=== PATIENT | male | born 1960 | race Caucasian/White ===

== ENCOUNTER 2016-12-19 06:33 | Day surgery (SDC) | payer OTHER ==
[2016-12-10 10:31] VITALS: BMI 20.9
[~2016-12-19 06:33] MED LIST: DEXAMETHASONE SOD PHOSPHATE 10 MG/ML 1 ML VIAL IV ONE; HEPARIN SODIUM,PORCINE 5,000 UNIT/ML 1 ML VIAL SQ ONE; HYDROmorphone 1 MG/ML 1 ML SYRINGE IVP PRN; LACTATED RINGERS 1,000 ML IV SCH; ONDANSETRON 4 MG/2 ML VIAL IVP ONE; SCOPOLAMINE 1.5MG/72HR PATCH TRANSDERM ONE; ceFAZolin 2 GM in SODIUM CHLORIDE 0.9% 100 ML IVPB ONE
[2016-12-19] MEDS ORDERED: LIDOCAINE 1% 20 ML VIAL (10MG/ML) FOR IV START INTRADERMA ONE (06:59)
[2016-12-19] MEDS: MIDAZOLAM 2 MG/2 ML VIAL IV PRN ×2 (07:15→10:40)
[2016-12-19] MEDS ORDERED: HYDROmorphone (PF) 1 MG/ML ONE (07:35)
[2016-12-19] MEDS ORDERED: NEOSTIGMINE 1 MG/ML 10 ML VIAL ONE (07:35)
[2016-12-19] MEDS ORDERED: ROCURONIUM BROMIDE 10 MG/ML 10 ML VIAL IV ONE (07:35)
[2016-12-19] MEDS ORDERED: SUCCINYLCHOLINE CHLORIDE 100 MG/5 ML SYR IV ONE (07:35)
[2016-12-19] MEDS ORDERED: fentaNYL (PF) 50 MCG/ML 2 ML AMP ONE (07:35)
[2016-12-19] MEDS ORDERED: LIDOCAINE 1% INJ 10MG/ML (20 ML MDV) ONE (07:35)
[2016-12-19] MEDS ORDERED: PROPOFOL 10 MG/ML 20 ML VIAL IV ONE (07:35)
[2016-12-19] MEDS ORDERED: GLYCOPYRROLATE 0.2 MG/ML 2 ML VIAL ONE (07:35)
[2016-12-19] MEDS ORDERED: MIDAZOLAM 2 MG/2 ML VIAL ONE (07:35)
[2016-12-19] MEDS ORDERED: LIDOCAINE 2%-EPI 1:100,000 20 ML VIAL SQ ONE (08:06)
[2016-12-19 09:58] VITALS: TEMP 96.8
[2016-12-19] MEDS ORDERED: KETOROLAC 30 MG/ML 1 ML VIAL IVP ONE (10:22)
--- NOTE | 2016-12-19 10:30 | P.OP ---
Date of Procedure: 12/19/16 Preoperative Diagnosis: Right inguinal hernia Right colon cancer S/P right hemicolectomy PTSD Chronic nicotine dependence Postoperative Diagnosis: Same Procedure(s) Performed: Laparoscopic lysis of adhesions Robotic assist right inguinal hernia repair with mesh Implants: Covidien Progrip 10x15 cm Anesthesia: CAROL ANNA, local Surgeon: Isabella Dent Estimated Blood Loss (ml): 5 Pathology: none sent Condition: stable Disposition: PACU Indications for Procedure: 56 years old male presents with right inguinal hernia. He is a chronic active smoker. History of severe posttraumatic stress disorder. He underwent laparoscopic right hemicolectomy for colon cancer at outside facility. Informed consent obtained and he elected to undergo robotic-assisted laparoscopic right inguinal hernia repair with mesh possible bilateral possible open. Operative Findings: Omental adhesions between midline incision and small bowel. The right lower quadrant had colon and small bowel adhered to the peritoneum. Direct type hernia on the right side. No left inguinal hernia Description of Procedure: The patient was brought to the operating room and placed in supine position. General anesthesia with endotracheal intubation was performed as per anesthesia team. Both arms were tucked against the abdominal wall and a shunt was positioned in lithotomy using yellowfin stirrups. A ca catheter was inserted under sterile aseptic precautions. Chlorhexidine was used to prep the skin followed by application of sterile drapes and Ioban dressing. A timeout was performed to verify correct patient, correct procedure and correct side. Patient was confirmed to receive perioperative IV antibiotics, subcutaneous heparin 5000 units and bilateral SCDs were placed. A 2 mm skin incision was made in the left subcostal area and Veress needle was inserted to establish pneumoperitoneum to a pressure of 15 mmHg. a were dense adhesions between omentum and small bowel along prior midline incision. Additional 5 mm trocar was placed in the left lower quadrant. Laparoscopic lysis of adhesions was done using Ligasure device. The colon and small bowel were adhered to the right lower quadrant, most likely prior anastomosis site. This was carefully taken down using combination of sharp and blunt dissection.. A 1.5 cm supraumbilical incision was made which was deepened through the subcutaneous tissue . Two additional 8 mm skin incisions were made on either side of the midline approximately 8 cm away. A 5 mm 30 laparoscope was used to enter the peritoneum using direct Optiview technique. A 12 mm robotic trocar was inserted in the supraumbilical area and 8 mm robotic trocars were inserted on either side of the midline. The patient was placed in Trendelenburg position and the robot was brought in between the legs. The robotic arms including the camera arm were docked on the trocars. The robotic prograsp and monopolar scissors were introduced via arm 1 and 2 respectively. Upon inspection of the peritoneal cavity, right direct inguinal hernia hernia identified. The rasmussen anatomical landmarks including the pubic symphysis, median and medial umbilical ligaments and bilateral epigastric vessels were identified. No left sided hernia. Using monopolar scissors a peritoneal flap was created extending medially from the median umbilical ligament and laterally to the direct hernia space. Using gentle traction and countertraction the flap was developed posteriorly. Loose fibrofatty tissue was bluntly dissected. Medially the dissection was carried along the Neel's ligament till pubic tubercle was identified. Care was taken to stay away from the urinary bladder. Dissection was carried out to leave the epigastric vessels against the anterior abdominal wall and laterally beyond the hernia defect. The direct hernia sac was completely reduced. The iliofemoral vessels were identified. The peritoneal reflection overlying the spermatic cord was also dissected off. Care was taken not to injure any gonadal vessels or spermatic cord. Enough inferior dissection was carried out 2 cm below the hernia defect. No indirect hernia noted. Covidien progrip mesh 10x15 cm was rolled and introduced through the 12 mm camera port. The right mesh was placed in the preperitoneal cavity with green portion overlying the pubic tubercle . The mesh was rolled upwards so that the mesh covered the direct , indirect inguinal hernia and the femoral hernia space without any kinks or folds. The peritoneal flap was then sutured to the cut edge of the peritoneum using continuous 2-0 V lock sutures. The hernia sac w2as completely reduced and the mesh lay flat without any kinks or folds. The robotic arms were then undocked and 30 degree laparoscope was inserted. All the needles were removed from the abdominal cavity. The 12mm camera trocar site was closed with 2 transfascial sutures of 0 Vicryl. The sponge, instrument and needle count were correct x2. The skin was closed with interrupted sutures of 4-0 Monocryl. Dermabond skin glue was applied followed by Telfa and Tegaderm dressing. Ca catheter was removed and scrotum was palpated to confirm the position of the testicles. The patient tolerated the procedure well and was taken to post anesthesia care unit in stable condition .
[2016-12-19 10:56] VITALS: RESP 16
[2016-12-19 11:23] VITALS: BP 130/79
[2016-12-19 11:45] VITALS: PULSE 60
== END 2016-12-19 12:42 | disposition home or self-care (01) ==
LOC: OR 06:33
PROVIDERS: ATTEND Surgery
DX: K40.90 Unilateral inguinal hernia, without obstruction or gangrene, not specified as recurrent (principal); K66.0 Peritoneal adhesions (postprocedural) (postinfection); Z90.49 Acquired absence of other specified parts of digestive tract; Z85.038 Personal history of other malignant neoplasm of large intestine
CPT/HCPCS: 49650; S2900

== ENCOUNTER → 2017-08-24 | Outpatient (CLI) | payer OTHER ==
--- NOTE | 2017-08-24 13:12 | US ---
EXAMINATION TYPE: US groin RT DATE OF EXAM: 08/24/2017 COMPARISON: 04/01/17 Ultrasound CLINICAL HISTORY: R22.41 Mass of Right hip. Palpable lump right groin Multiple lymph nodes noted. Largest one = 2.9 x 1.5 x 1.0 cm. This was seen previously and measured 2 .1 x 0.6 x 1.0 cm at that time. Many smaller, hypoechoic lymph nodes seen as well. Area of palpable l ump = hypoechoic, 0.7 x 0.5 x 0.3 cm Previously this measured 0.9 x 1.0 x 1.1 cm IMPRESSION: As above. Largest measure lymph node appears to have lost normal fatty hilum. At this po int I would advise further imaging with contrast enhanced MRI and/or CT to evaluate this persistent a neli of clinical concern.
== END | disposition home or self-care (01) ==
LOC: RADUSWWP 12:16
PROVIDERS: ATTEND Family Medicine
DX: R22.9 Localized swelling, mass and lump, unspecified (principal)

== ENCOUNTER → 2017-10-06 | Outpatient (CLI) | payer OTHER ==
--- NOTE | 2017-10-06 11:38 | FL ---
EXAMINATION TYPE: FL barium swallow DATE OF EXAM: 10/06/2017 CLINICAL HISTORY: Hoarseness and dysphasia per order, recent ENT score of September 29 with possible lump TECHNIQUE: A double contrast esophagram is performed utilizing air and barium. A total of 71 second s of fluoroscopic time was utilized during procedure. 57 spot images are saved during procedure COMPARISON: None FINDINGS: The esophagus shows satisfactory motility and emptying into the stomach. Patient did have e pisode of aspiration which cleared with coughing injury did not reproduce. No evidence of hiatal her eulalio or stricture noted. No obvious intraluminal mass identified with fairly symmetric appears to the piriform sinuses. No significant gastroesophageal reflux was seen during real time performance of thi s study. IMPRESSION: No significant abnormality or mass is seen to account for patient's symptoms. Consider contrast-enhanced neck CT which is more sensitive if clinical suspicion persists.
== END | disposition home or self-care (01) ==
LOC: RADFLMAIN 10:44
PROVIDERS: ATTEND Otolaryngology
DX: R49.0 Dysphonia (principal); R13.10 Dysphagia, unspecified
CPT/HCPCS: 74220

== ENCOUNTER → 2017-10-29 | Outpatient (CLI) | payer OTHER ==
--- NOTE | 2017-10-29 11:23 | CT ---
EXAMINATION TYPE: CT soft tissue neck w con DATE OF EXAM: 10/29/2017 HISTORY: Lump in throat COMPARISON: NONE CT DLP: 320.5 mGycm. Automated Exposure Control for Dose Reduction was Utilized. TECHNIQUE: CT scan of the neck is performed with IV Contrast, patient injected with 100 mL of Isovue 300, axial images are obtained, coronal and sagittal reformatted images are reviewed. FINDINGS: Airway: True and false focal cords are overall symmetric. Frontal sinuses are unremarkable. Within th e left vallecula there is ar 1.2 x 0.9 x 1.0 cm fluid attenuated structure that could represent a mas s/polyp or debris. Fossa of Rosenmuller and torus tubarius are unremarkable. No enlarged cervical paxton in lymph nodes. Parotid/submandibular glands: Symmetric without atrophy or surrounding inflammatory change. Carotid/Vascular Structures: There is conventional 3 branch pattern of the aortic arch. No hemodynami maricarmen significant stenosis is seen within either carotid arterial system as visualized within the nec k. Vertebral arteries appear patent with dominance of the left vertebral artery. Osseous Structures: Moderate mucosal thickening is seen within the ethmoid sinuses, sphenoid sinus an d left frontal sinus. Mastoid air cells are well aerated. Osseous septum is present within the right maxillary sinus. Probable polyp is seen within the posterior left nasopharynx on series 3 image 81 me asuring 6 mm. Multilevel moderate degenerative changes of the cervical spine are noted. Other: Mild centrilobular emphysematous changes are seen at the lung apices with biapical pleural-par enchymal scarring. Thyroid gland is grossly unremarkable. IMPRESSION: 1. 1.2 cm mass within the left vallecula that is fluid attenuated and could represent neoplasm, polyp , or debris. Direct visualization is recommended. 2. No adenopathy within the neck. 3. Moderate paranasal sinus disease and probable 6 mm left posterior nasopharyngeal polyp.
== END | disposition home or self-care (01) ==
LOC: RADCTMAIN 09:16
PROVIDERS: ATTEND Otolaryngology
DX: J38.7 Other diseases of larynx (principal)
CPT/HCPCS: 70491; Q9967

== ENCOUNTER → 2018-03-10 | Outpatient (CLI) | payer OTHER ==
--- NOTE | 2018-03-10 14:41 | CT ---
EXAMINATION TYPE: CT pelvis w con DATE OF EXAM: 03/10/2018 COMPARISON: None INDICATION: Enlarged lymph node DLP: 374.4 mGycm, Automated exposure control for dose reduction was used. CONTRAST: 100 mL of Isovue 300. Study performed with Oral Contrast TECHNIQUE: Axial images were obtained from above the diaphragm to the pubic rami in the axial plane a t 5 mm thick sections. Reconstructed images are reviewed on the computer in the coronal plane. FINDINGS: CT PELVIS: There are scattered small inguinal lymph nodes present bilaterally. None of these directly correspond to the BB marked. The right suprainguinal region. Inguinal hernia is not identified. Loops of bowel within the abdomen and pelvis are normal. There are loops of bowel which are incom pletely distended or lack oral contrast limiting their evaluation. Appendix: The appendix appears resected. No suspicious tubular structures or inflammatory changes are evident. Urinary bladder: Normal. Genitourinary structures: Prostate is somewhat prominent and contains calcification. Osseous structures: No suspicious lytic or sclerotic lesions. Degenerative disc changes are within th e L5-S1 level IMPRESSIONS: 1. No suspicious abnormality to correspond to the palpable abnormality marked by the BB. Some nonspe cific bilateral inguinal lymph nodes are present.
== END ==
LOC: RADCTMAIN 10:37
DX: R59.9 Enlarged lymph nodes, unspecified (principal)
CPT/HCPCS: 72193; Q9967

== ENCOUNTER 2020-11-12 07:58 | Day surgery (SDC) | payer OTHER ==
[2020-11-08 14:52] VITALS: BMI 20.6
[~2020-11-12 07:58] MED LIST changes: -DEXAMETHASONE SOD PHOSPHATE 10 MG/ML 1 ML VIAL IV ONE; -HEPARIN SODIUM,PORCINE 5,000 UNIT/ML 1 ML VIAL SQ ONE; -HYDROmorphone 1 MG/ML 1 ML SYRINGE IVP PRN; -ONDANSETRON 4 MG/2 ML VIAL IVP ONE; -SCOPOLAMINE 1.5MG/72HR PATCH TRANSDERM ONE; -ceFAZolin 2 GM in SODIUM CHLORIDE 0.9% 100 ML IVPB ONE
[2020-11-12] MEDS: LIDOCAINE 1% (10MG/ML) FOR IV START INTRADERMA PRN ×2 (08:30→08:35)
[2020-11-12] MEDS ORDERED: PROPOFOL 10 MG/ML 20 ML VIAL IV ONE (08:38)
[2020-11-12 08:39] VITALS: TEMP 98.6
--- NOTE | 2020-11-12 09:17 | P.PCN ---
Date of Procedure: 11/12/20 Description of Procedure: BRIEF HISTORY: Patient is a 60-year-old male with a medical history significant for colon cancer status post right hemicolectomy presenting for colonoscopy for evaluation of colon cancer. History of colon cancer in his early 50s treated with colonic resection with no chemotherapy or radiation therapy as per patient. PROCEDURE PERFORMED: Colonoscopy with polypectomy. PREOPERATIVE DIAGNOSIS: History of colon cancer, last colonoscopy in 2016. ESTIMATED BLOOD LOSS: Minimal. IV sedation per Anesthesia. PROCEDURE: After informed consent was obtained, the patient, was brought into the endoscopy unit. IV sedation was administered by Anesthesia under continuous monitoring. Digital rectal examination was normal. Initially the Olympus CF-190 flexible video colonoscope was then inserted in the rectum, gradually advanced into the transverse colon at the site of prior right hemicolectomy and anastomosis without any difficulty. Careful examination was performed as the scope was gradually being withdrawn. Ileocecal valve and the appendiceal orifice were visualized and appeared normal. Prep was excellent. Mucosa of the anastomotic site, transverse colon, descending colon, sigmoid colon, and rectum appeared normal. Diminutive polyps measuring 1-2 mm in size removed from the transverse colon and sigmoid colon with cold forcep polypectomy. Sessile polyps measuring 3-4 mm in size removed from the rectum and sigmoid colon with cold snare po lypectomy. Retroflexion was performed in the rectum and no lesions were seen and internal hemorrhoids were noted . The patient tolerated the procedure well. IMPRESSION: 2 sessile polyps removed with cold snare polypectomy from the sigmoid colon and rectum. 2 diminutive polyps removed with cold forcep polypectomy from the transverse colon and sigmoid colon. Internal and external hemorrhoids. Prior right hemicolectomy with intact anastomotic site. RECOMMENDATIONS: Findings of this examination were discussed with the patient and his family. Okay to resume diet. Okay to resume medications. Await pathology from polypectomies. Recommend repeat colonoscopy in 5 years for history of colon cancer pending pathology from polypectomies.
[2020-11-12 09:41] VITALS: BP 111/75; PULSE 54; RESP 20
== END 2020-11-12 09:41 | disposition home or self-care (01) ==
LOC: ORWHC2ENDO 07:58
PROVIDERS: ATTEND Internal Medicine
DX: Z12.11 Encounter for screening for malignant neoplasm of colon (principal); K64.8 Other hemorrhoids; K64.4 Residual hemorrhoidal skin tags; Z90.49 Acquired absence of other specified parts of digestive tract; Z85.038 Personal history of other malignant neoplasm of large intestine; Z98.0 Intestinal bypass and anastomosis status; F17.200 Nicotine dependence, unspecified, uncomplicated; Z98.890 Other specified postprocedural states; D12.5 Benign neoplasm of sigmoid colon; K62.1 Rectal polyp; K63.5 Polyp of colon
CPT/HCPCS: 88305; 45380; 45385; J2704

== ENCOUNTER → 2022-03-25 | Outpatient (CLI) | payer OTHER ==
--- NOTE | 2022-03-26 07:28 | CT ---
EXAMINATION TYPE: CT facial bones wo con DATE OF EXAM: 03/25/2022 COMPARISON: NONE HISTORY: follow up. pt's dentist noticed a spot in maxilla. CT DLP: 801.6 mGycm. Automated Exposure Control for Dose Reduction was Utilized. TECHNIQUE: CT scan of the facial bones is performed without contrast, axial images are obtained, catrachita nal reformatted images are also reviewed. FINDINGS: Multiple cavitary fillings and crowns show streak artifact somewhat limiting evaluation lev el of the oral cavity. The mandible is intact. The temporomandibular joints are maintained bilaterall y. The maxilla is grossly intact. No suspicious focal osseous lesions are seen.. Pterygoid plates are intact bilaterally. There is mild to moderate mucosal thickening involving the maxillary sinuses right greater than left with small mucous retention cyst or polyp in the left maxillary sinus coronal image 8. There is at le ast moderate mucosal thickening and partial opacification of the ethmoid sinuses bilaterally. There i s dependent fluid in the bilateral sphenoid sinuses with focal anterior mucous retention cyst and/or polyp on the left. Maxillary sinuses are grossly clear. Globes are intact bilaterally. Visualized brain parenchyma is unremarkable. Visualized mastoid air ce lls are clear. IMPRESSION: No suspicious maxillary osseous lesion. Acute on chronic paranasal sinus disease noted as detailed above.
== END | disposition home or self-care (01) ==
LOC: RADCTMAIN 18:10
DX: Z04.9 Encounter for examination and observation for unspecified reason (principal); S00.85XA Superficial foreign body of other part of head, initial encounter; J34.9 Unspecified disorder of nose and nasal sinuses
CPT/HCPCS: 70486

== ENCOUNTER → 2023-09-09 | Outpatient (CLI) | payer OTHER ==
--- NOTE | 2023-09-10 18:05 | CTL ---
EXAMINATION TYPE: CT Low Dose Lung DATE OF EXAM: 09/09/2023 1:19 PM CLINICAL INDICATION:Male, 63 years old with history of Z12.2,F17.210; History of tobacco use. , histo ry of tobacco use. COMPARISON: None. TECHNIQUE: Multiple axial non-contrast scans were obtained from approximately the lung apices through the upper abdomen. Coronal and sagittal reformatted images were obtained. Low dose technique was uti lized. CT DLP: 82.7 mGycm, Automated exposure control for dose reduction was used. CT Contrast: Contrast used: None Oral contrast used: None FINDINGS: ======== Lack of intravenous contrast and low dose technique limits the evaluation of the vascular and soft ti ssue structures. LUNGS: No evidence of pulmonary fibrosis. No evidence of focal consolidation, pneumothorax or pleural effusion. Centrilobular emphysema changes. Nodules: RUL: None. RML: None. RLL: None. ANGELITO: None. LLL: None. AIRWAY: Patent and unremarkable. HEART: Size within normal limits. MEDIASTINUM: No gross evidence of adenopathy. VASCULATURE: No aortic aneurysm. MUSCULOSKELETAL: No acute osseous abnormalities SOFT TISSUES/LYMPH NODES: Unremarkable. LOWER NECK: No significant findings. UPPER ABDOMEN: No significant findings. IMPRESSION: 1. No clinically significant pulmonary nodules. 2. Mild emphysema. CT LUNG RAD AND CT CHEST RECOMMENDATION: Lung-Rad 1 Negative: Continue annual screening with LDCT in 12 months. S Modifier (other clinically significant findings): None Recommend smoking cessation (if current smoker), or continuation of smoking cessation (if prior smoke r). Annual screening for lung cancer with low-dose computed tomography is recommended in adults ages 55 to 77 years who have a 30 pack-year smoking history and currently smoke or have quit within the pa st 15 years. Screening should be discontinued once a person has not smoked for 15 years or develops a health problem that substantially limits life expectancy or the ability or willingness to have curat mayda lung surgery. Lung rads 2021 [email or web address]
== END | disposition home or self-care (01) ==
LOC: RADCTMAIN 12:46
PROVIDERS: ATTEND Internal Medicine Pulmonary Disease
DX: Z12.2 Encounter for screening for malignant neoplasm of respiratory organs (principal); F17.210 Nicotine dependence, cigarettes, uncomplicated; J43.2 Centrilobular emphysema
CPT/HCPCS: 71271

== ENCOUNTER 2024-04-29 05:40 | Day surgery (SDC) | payer OTHER ==
--- NOTE | 2024-04-28 15:59 | P.GSHP ---
History of Present Illness H&P Date: 04/28/24 Chief Complaint: Recurrent right inguinal hernia 64-year-old male presents to the office in November. Patient with complaints of a right sided groin bulge. Increasing pain. Increasing soreness. Had previous laparoscopic repair 2016. Had prior colon resection as well. Past Medical History Past Medical History: Cancer, Skin Disorder Additional Past Medical History / Comment(s): hx colon cancer about 10 yrs. ago, seasonal allergies, rosacea History of Any Multi-Drug Resistant Organisms: None Reported Past Surgical History: Bowel Resection, Hernia Repair Additional Past Surgical History / Comment(s): colonoscopies Past Anesthesia/Blood Transfusion Reactions: No Reported Reaction Smoking Status: Former smoker - Past Family History Mother Family Medical History: Cancer Additional Family Medical History / Comment(s): colon ca Father Family Medical History: Cancer Additional Family Medical History / Comment(s): lung cancer Medications and Allergies Home Medications Medication Instructions Recorded Confirmed Type Quit Smoking Med 1 dose PO DAILY 04/26/24 History Allergies Allergy/AdvReac Type Severity Reaction Status Date / Time No Known Allergies Allergy Verified 04/26/24 11:51 Surgical - Exam Physical exam: General: Well-developed, well-nourished HEENT: Normocephalic, sclerae nonicteric, previous scars noted, reducible right inguinal hernia moderate-sized Abdomen: Nontender, nondistended Extremities: No edema Neuro: Alert and oriented Assessment and Plan (1) Recurrent right inguinal hernia Narrative/Plan: 64-year-old male with recurrent right inguinal hernia. Will proceed with open repair recurrent radial hernia with mesh tomorrow. Risks of bleeding, infection, recurrence, bladder and bowel injury, numbness, nerve injury were discussed with the patient. The patient understands and wishes to proceed. Status: Acute Code(s): K40.91 - UNILATERAL INGUINAL HERNIA, W/O OBST OR GANGRENE, RECURRENT SNOMED Code(s): 249655319
[2024-04-29] MEDS ORDERED: SCOPOLAMINE 1 MG/72 HR PATCH TRANSDERM ONE (06:00)
[2024-04-29] MEDS ORDERED: LACTATED RINGERS 1,000 ML IV SCH (06:00)
[2024-04-29] MEDS: IV FLUID CONTINUATION 1,000 ML IV ONE (06:33)
[2024-04-29] MEDS: ACETAMINOPHEN TAB 500 MG TAB PO PRN (06:51)
[2024-04-29] MEDS: DEXAMETHASONE SOD PHOSPHATE 4 MG/ML 1 ML VIAL IV ONE (06:52)
[2024-04-29] MEDS: ONDANSETRON 4 MG/2 ML VIAL IVP ONE (06:52)
[2024-04-29] MEDS: HEPARIN SODIUM,PORCINE 5,000 UNIT/ML 1 ML VIAL SQ PRN (06:52)
[2024-04-29 06:58] LABS: Basophils # (A) 0.1 k/uL (0-0.2); Basophils % (A) 1 %; Eosinophils # (A) 0.8 k/uL (0-0.7); Eosinophils % (A) 8 %; HCT 48.1 % (39.0-53.0); Lymphocytes # (A) 2.3 k/uL (1.0-4.8); Lymphocytes % (A) 24 %; MCH 30.6 pg (25.0-35.0); MCHC 33.2 g/dL (31.0-37.0); MCV 92.1 fL (80.0-100.0); Mean Platelet Volume 7.2; Monocytes # (A) 0.8 k/uL (0-1.0); Monocytes % (A) 9 %; Neutrophils # (A) 5.4 k/uL (1.3-7.7); Neutrophils % (A) 56 %; Platelet Count 267 k/uL (150-450); RBC 5.22 m/uL (4.30-5.90); RDW 13.1 % (11.5-15.5); WBC 9.5 k/uL (3.8-10.6)
[2024-04-29 07:10] LABS: African American GFR (CKD) >90 (>60 ml/min/1.73 sqM); Anion Gap 7 mmol/L; Blood Urea Nitrogen 11 mg/dL (9-20); Calcium 9.5 mg/dL (8.4-10.2); Carbon Dioxide 28 mmol/L (22-30); Chloride 103 mmol/L (98-107); Glucose 80 mg/dL (74-99); Non-African American GFR(CKD) >90 (>60 ml/min/1.73 sqM); Potassium 4.2 mmol/L (3.5-5.1); Sodium 138 mmol/L (137-145)
[2024-04-29] MEDS: MIDAZOLAM 2 MG/2 ML VIAL IV PRN (07:34)
[2024-04-29] MEDS ORDERED: PHENYLEPHRINE 10 MG/ML VIAL ONE (07:44)
[2024-04-29] MEDS ORDERED: HYDROmorphone (PF) 1 MG/ML ONE (07:44)
[2024-04-29] MEDS ORDERED: fentaNYL (PF) 50 MCG/ML 2 ML AMP ONE (07:44)
[2024-04-29] MEDS ORDERED: DEXAMETHASONE SOD PHOSPHATE 4 MG/ML 1 ML VIAL ONE (07:44)
[2024-04-29] MEDS ORDERED: ROCURONIUM 10 MG/ML (5 ML VIAL) IV ONE (07:44)
[2024-04-29] MEDS ORDERED: ROPIVACAINE 5 MG/ML 30 ML VIAL ONE (07:44)
[2024-04-29] MEDS ORDERED: MIDAZOLAM 2 MG/2 ML VIAL ONE (07:44)
[2024-04-29] MEDS ORDERED: NEOSTIGMINE 1 MG/ML 10 ML VIAL ONE (07:44)
[2024-04-29] MEDS ORDERED: PROPOFOL 10 MG/ML 20 ML VIAL IV ONE (07:44)
[2024-04-29] MEDS ORDERED: LIDOCAINE 1% INJ 10MG/ML (20 ML MDV) ONE (07:44)
[2024-04-29] MEDS ORDERED: SUCCINYLCHOLINE CHLORIDE 200 MG/10 ML VIAL IV ONE (07:44)
[2024-04-29] MEDS ORDERED: GLYCOPYRROLATE 0.2 MG/ML 2 ML VIAL ONE (07:44)
[2024-04-29] MEDS: BUPIVACAINE (PF) 0.25% 30 ML VIAL SQ ONE (08:13)
[2024-04-29] MEDS: LACTATED RINGERS 1,000 ML IV ONE (08:56)
[2024-04-29 09:28] VITALS: TEMP 97
--- NOTE | 2024-04-29 09:31 | P.ANPRN ---
Procedure Note - Anesthesia - Nerve Block Performed Right Transversus Abdominis Single Time Out Performed: Yes ([id number]) Date of Procedure: 04/29/24 Location of Patient: PreOp Indication: Acute Post-Operative Pain, Requested by Surgeon Specifically requested for management of pain by DrKailey: Chuckie Blankenship Sedation Type: Sedate with meaningful contact maintained Preparation: Sterile Prep Position: Supine Catheter: None Needle Types: Pajunk Needle Gauge: 21 Ultrasound used to visualize needle placement: Yes Ultrasound used to observe medication spread: Yes Injectate: 0.5% Ropivacaine (see comment for volume) (30 cc + 4mg of decadron) Blood Aspirated: No Pain Paresthesia on Injection Noted: No Resistance on Injection: Normal Image Stored and Saved: Yes Events: Uneventful and Well Tolerated
[2024-04-29] MEDS: HYDROmorphone 0.5 MG/0.5 ML SYRINGE IVP PRN (09:38)
--- NOTE | 2024-04-29 10:06 | P.OP ---
Date of Procedure: 04/29/24 Procedure(s) Performed: PREOPERATIVE DIAGNOSIS: Right recurrent inguinal hernia POSTOPERATIVE DIAGNOSIS: Right femoral hernia PROCEDURE: Open repair right femoral hernia SURGEON: Dr. Blankenship ANESTHESIA: General EBL: 5 cc OPERATIVE PROCEDURE DETAILS: Patient was placed in the operating table in the supine position and placed under general anesthesia. An oblique incision was made in the right groin. Dissection down through the subcutaneous tissues took place using electrocautery. The external oblique fascia was incised using a scalpel. This opening was lengthened using the Metzenbaum scissors. The spermatic cord was encircled with a Wever drain. The spermatic cord structures were identified and preserved. Careful dissection revealed no visible direct or indirect inguinal hernia. There was a small cord lipoma that was ligated at the internal inguinal ring using a 0 Vicryl stitch. I then i nspected the tissues inferior to the inguinal ligament. As we dissected I identified a portion of fat that appeared suspicious for hernia. This was carefully dissected. The patient had a relatively traditional appearing femoral hernia with a small 2 cm length of fat with a width of only about 5 to 6 mm. This is coming through a small defect medially in the femoral space measuring about 5 mm. This was excised and closed using a 0 silk stitch. The larger bulbous portion of fatty tissue was dissected superiorly and ended up being a moderate sized reducible femoral hernia with the defect immediately anterior to the femoral vein. Given its location I was not comfortable placing any mesh year. The hernia sac was ligated at the inguinal ligament using 2 separate 0 silk's stick tie sutures. Tissue was removed and labeled hernia sac. This was made up of primarily just fatty tissue and no definite identifiable sac was present. No residual hernia was identified at that time. Surgicel powder was used to help prevent postoperative seroma. The external oblique was then reapproximated using a running 2-0 Vicryl suture. The subcutaneous tissues were reapproximated using a 3-0 Vicryl sutures. The skin was closed using 4-0 Monocryl sutures. Skin glue and sterile dressings were then applied. TYPE OF MESH USED: None LOCATION OF MESH: None FIXATION: None PREOPERATIVE DISCUSSION ON SMOKING CESSASTION: Yes PREOPERATIVE DISCUSSION ON MORBID OBESITY: Yes PREOPERATIVE DISCUSSION ON APPROPRIATE USE OF NARCOTIC USE: Yes PREOPERATIVE EDUCATION: Multi Modal, Smoking Cessation and Weight Loss with BMI over 35. DISPOSITION: Stable to recovery room
[2024-04-29 11:30] VITALS: BP 142/93; PULSE 51; RESP 16
[2024-04-29] MEDS ORDERED: ACETAMINOPHEN TAB 325 MG TAB PO SCH (12:00)
[2024-04-29] MEDS ORDERED: IBUPROFEN 600 MG TAB PO SCH (13:00)
== END 2024-04-29 14:39 | disposition home or self-care (01) ==
LOC: OR 05:40
PROVIDERS: ATTEND Surgery
DX: K41.90 Unilateral femoral hernia, without obstruction or gangrene, not specified as recurrent (principal); G89.18 Other acute postprocedural pain; J30.2 Other seasonal allergic rhinitis; L71.9 Rosacea, unspecified; F43.10 Post-traumatic stress disorder, unspecified; F17.210 Nicotine dependence, cigarettes, uncomplicated; F12.90 Cannabis use, unspecified, uncomplicated; Z90.49 Acquired absence of other specified parts of digestive tract; Z85.038 Personal history of other malignant neoplasm of large intestine; Z98.890 Other specified postprocedural states; Z79.899 Other long term (current) drug therapy; Z80.0 Family history of malignant neoplasm of digestive organs; Z80.1 Family history of malignant neoplasm of trachea, bronchus and lung
CPT/HCPCS: 49550; 64486; 80048; 85025; J2250; J1644; J1100; J0690; J2405; J1171; 88302